=== PATIENT | male | born 1975 | race African-American/Black ===

== ENCOUNTER 2017-05-01 04:12 | Emergency (ER) | payer OTHER, BC ==
[~2017-05-01] VITALS: Ht 182.9 cm; Wt 107.5 kg
[2017-05-01 04:17] VITALS: BP 125/91; PULSE 67; RESP 16; TEMP 98.5; O2SAT 99
[2017-05-01] MEDS ORDERED: CYCL1TAB29 PO (05:07)
[2017-05-01] MEDS ORDERED: IBUP800T23 PO (05:07)
--- NOTE | 2017-05-01 05:08 | PD ---
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 At night tonight he had severe pain and cramping in that hamstring area and tenderness around the insertion of that hamstring. He took some over-the- counter ibuprofen. He denies any trauma. An MRI years ago showed a cyst in his deep at the orthopedic doctor, Dr. Sykes felt that this was not significant. The MRI was done for knee pain but this was totally different pain than tonight's pain. PFSH Past Medical History Hx Anticoagulant Therapy: No Cardiovascular Problems: No Chemotherapy: No Cerebrovascular Accident: No Diabetes: No Respiratory: No ?: Not Past Surgical History Appendectomy: Yes Hysterectomy: No Social History Alcohol Use: No Tobacco Use: No Substance Use: No Allergies-Medications (Allergen,Severity, Reaction): Coded Allergies: Iodine (Verified Allergy, Severe, Rash, 10/10/15) Reported Meds & Prescriptions Reported Meds & Active Scripts Active No Active Prescriptions or Reported Medications Review of Systems Except as stated in HPI: all other systems reviewed are Neg Physical Exam Narrative GENERAL: Well-nourished, well-developed patient in minimal apparent distress with his left knee discomfort. His vital signs are normal except for blood pressure 125/91. SKIN: Focused skin assessment warm/dry. HEAD: Normocephalic. EYES: No scleral icterus. No injection or drainage. NECK: Supple, trachea midline. No JVD or lymphadenopathy. CARDIOVASCULAR: Regular rate and rhythm without murmurs, gallops, or rubs. RESPIRATORY: Breath sounds equal bilaterally. No accessory muscle use. GASTROINTESTINAL: Abdomen soft, non-tender, nondistended. MUSCULOSKELETAL: No cyanosis, or edema. Collaterals, drawer, Leo all intact testing. I cannot feel any popliteal cyst. There is tenderness over the insertion of one of the lateral hamstrings. Pain is reproduced when pressing on this area. No erythema is noted. The patient's pain is also reproduced by completely extending the knee. BACK: Nontender without obvious deformity. No CVA tenderness. Data Data Last Documented VS Vital Signs Date Time Temp Pulse Resp B/P Pulse Ox O2 Delivery O2 Flow Rate FiO2 05/01/17 04:17 98.5 67 16 125/91 99 MDM Medical Decision Making Medical Screen Exam Complete: Yes Emergency Medical Condition: Yes Medical Record Reviewed: Yes Differential Diagnosis Insertional tendinitis hamstring, ruptured popliteal cyst, muscle spasm hamstring Narrative Course The patient may have an insertional tendinitis of the hamstring. He did apparently have a muscle spasm of the hamstring earlier tonight. I do not find any evidence for ruptured popliteal cyst. Plan: The patient be put on Motrin 800 mg 3 times daily and Flexeril taken primarily at night. Diagnosis Primary Impression: Strain of insertion of tendon of hamstring muscle Additional Instructions: If this problem persist, follow-up with orthopedics. He may wish to repeat an MRI. As we discussed, do not drive within 8 hours of taking the Flexeril. Med/Other Pt SpecificInfo: Prescription(s) given Scripts Cyclobenzaprine (Flexeril)10 Mg Tab10 Mg PO TID #90 TAB Ref 0 Prov:Rojelio Chamorro MD 05/01/17 Ibuprofen 800 Mg Xiy802 Mg PO TID #44 TAB Ref 0 Prov:Rojelio Chamorro MD 05/01/17 Disposition: 01 DISCHARGE HOME Condition: Stable Rojelio Chamorro MD May 01, 2017 05:08
[2017-05-01] MEDS ORDERED: ORPHENADRINE INJ 60 MG/2 ML AMP IM ONE (05:15)
[2017-05-01] MEDS ORDERED: KETOROLAC TROMETHAMINE 60 MG/2 ML (IM) VIAL IM ONE (05:15)
== END 2017-05-01 05:29 | disposition home or self-care (01) ==
LOC: PHED 04:12
DX: S76.312A Strain of muscle, fascia and tendon of the posterior muscle group at thigh level, left thigh, initial encounter (principal); R25.2 Cramp and spasm; X58.XXXA Exposure to other specified factors, initial encounter
CPT/HCPCS: 96372; 99284; J1885; J2360